=== PATIENT | male | born 1995 | race Caucasian/White ===

== ENCOUNTER → 2023-09-30 17:10 | Outpatient (CLI) | payer OTHER, SELFPAY ==
--- NOTE | 2023-09-30 17:14 | DI.MRI.S_ITS ---
PROCEDURE: MR KNEE RT WO CON INDICATIONS: PAIN IN RIGHT KNEE TECHNIQUE: Noncontrast sagittal PD fast spin echo and T2 fast spin echo with fat saturation, sagittal 3-D FLASH with fat saturation; coronal T1 spin echo and PD fast spin echo with fat saturation, and axial PD fast spin echo with fat saturation through the knee. COMPARISON: None. FINDINGS: Image quality: Diagnostic Menisci: Medial: Small horizontal tear versus fraying at the posterior horn. Lateral: Complex tear involving the periphery of the body and posterior horn, primarily horizontal Focal vertical tear is also seen at the body free edge. There are parameniscal cysts Cruciate ligaments: Intact Medial structures: MCL: Intact Pes anserine tendons: Intact Semimembranosus: Intact Lateral structures: LCL: Mild edema at the proximal aspect Biceps femoris: Mild insertional tendinopathy IT band: Intact Popliteus tendon: Insertional tendinopathy Anterior structures: Extensor mechanism: Intact Fat pads: Moderate edema Hoffa's fat pad Medial retinaculum: Intact. Trochlea: Unremarkable morphology. Bone and joint: Bones: There is a minimal contusion at the lateral tibial plateau Cartilage: No full-thickness defect mild diffuse heterogeneity. Joint space: Small joint effusion Garcias's cyst: Small Garcias's cyst Soft tissues: No significant vascular or other soft tissue pathology. IMPRESSION: Complex tear of the lateral meniscus with adjacent parameniscal cysts. Adjacent sprains and mild edema of the posterolateral corner structures. No full-thickness cruciate or collateral ligament tears. Possible fraying versus tiny horizontal tear of the posterior horn of the medial meniscus. There is a minimal contusion of the lateral tibial plateau, without displaced component Moderate edema Hoffa's fat pad. Small joint effusion. Small Garcias's cyst. Dictated by: Isaias Woodard M.D. on 10/01/2023 at 15:16 Approved by: Isaias Woodard M.D. on 10/01/2023 at 15:21
== END ==
DX: S83.271A Complex tear of lateral meniscus, current injury, right knee, initial encounter (principal); M25.461 Effusion, right knee; M71.21 Synovial cyst of popliteal space [Baker], right knee; M25.561 Pain in right knee
CPT/HCPCS: 73721